=== PATIENT | female | born 1975 | race Caucasian/White ===

== ENCOUNTER 2018-03-12 07:08 | Emergency (ER) | payer OTHER ==
[~2018-03-12] VITALS: Ht 170.2 cm; Wt 99.8 kg
[~2018-03-12 07:08] MED LIST: CALCIUM500 MG PO; NEXIUM20 MG PO; ZOFRAN4 MG PO
[2018-03-12] MEDS ORDERED: ONDANSETRON ODT8 MG PO (08:30)
== END 2018-03-12 09:00 | disposition home or self-care (01) ==
LOC: ED 07:08
DX: K52.9 Noninfective gastroenteritis and colitis, unspecified (principal); Z79.899 Other long term (current) drug therapy
CPT/HCPCS: 80053; 85025; 87493; 96360; 99284; J7030

== ENCOUNTER 2020-06-15 23:56 | Emergency (ER) | payer OTHER ==
[~2020-06-15 23:56] MED LIST changes: +ONDANSETRON ODT8 MG PO
--- NOTE | 2020-06-18 13:29 | EKG ---
[facility] [address] [facility] [place], [place] [address] Signed Normal sinus rhythm Nonspecific ST and T wave abnormality Abnormal ECG No previous ECGs available Confirmed by VADIM AYOUB MD ([id number]) on 06/18/2020 1:29:23 PM Electronically Signed By: VADIM AYOUB MD 06/18/20 1329 PATIENT NAME: PHI IRWIN JO Electrocardiogram DATE OF : 71 PHYSICIAN: VADIM AYOUB MD REPORT #: [id number] REPORT IS CONFIDENTIAL AND NOT TO BE RELEASED WITHOUT AUTHORIZATION
[2020-11-13] MEDS ORDERED: NEXIUM20 MG PO (08:39)
[2020-11-13] MEDS ORDERED: CALCIUM-FOLIC1 EACH PO (08:39)
== END 2020-06-16 00:49 | disposition home or self-care (01) ==
LOC: ED 23:56
DX: R07.89 Other chest pain (principal)
CPT/HCPCS: 93005; 93010; 99284-25

== ENCOUNTER 2020-11-15 08:25 | Day surgery (SDC) | payer OTHER ==
[~2020-11-15] VITALS: Ht 170.2 cm; Wt 113.6 kg
[~2020-11-15 08:25] MED LIST changes: +CALCIUM-FOLIC1 EACH PO
[2020-11-15] MEDS ORDERED: IBUPROFEN800 MG PO (13:22)
[2020-11-15] MEDS ORDERED: PERCOCET 5-3251 EACH PO (13:23)
--- NOTE | 2020-11-16 11:51 | PATH ---
[facility] [address] [place], [place] [address] Signed SPECIMEN(S): A UTERUS, TUBES AND CERVIX SPECIMEN SOURCE: A. UTERUS, TUBES AND CERVIX CLINICAL HISTORY: AUB, dysmenorrhea, abnormal Pap. TLH, BS, cysto. FINAL PATHOLOGIC DIAGNOSIS: Uterus, cervix, and bilateral fallopian tubes, hysterectomy and bilateral salpingectomy: - Cervix: No histopathologic abnormality. - Endometrium: Secretory phase endometrium. - Myometrium: Leiomyomas (1.1 cm in greatest dimension). - Serosa: No histopathologic abnormality. - Fallopian tubes: Focal paratubal cyst. - No evidence of malignancy. NAL:cml:C2NR MICROSCOPIC EXAMINATION: Histologic sections of all submitted blocks are examined by light microscopy. These findings, together with the gross examination, support the pathologic diagnosis. GROSS DESCRIPTION: The specimen, labeled "BM," and designated on the requisition "bilateral fallopian tubes, uterus, cervix," is received in formalin and consists of a uterus (172 gram, 7.5 cm left to right, 6.6 cm superior to inferior, and 5.3 cm anterior to posterior), attached cervix (4.3 cm in length x 3.3 cm in diameter) with pink-zamudio to slightly hemorrhagic cervical mucosa and patent slit-shaped os (1.8 x 0.2 cm), and two detached and undesignated fimbriated fallopian tube segments (5.0 cm in length and ranging in diameter from 0.5-1.0 cm, and 5.0 cm in length and ranging in diameter from 0.7-0.9 cm). One fallopian tube segment is arbitrarily inked blue. Both fallopian tube segments are brown-zamudio and are sectioned reveal a grossly unremarkable cut surface. The blue inked fallopian tube has an attached paratubal cyst (0.5 cm in greatest dimension). The fimbriae are entirely submitted. The uterine serosa is pink-zamudio and smooth. The anterior aspects of the uterus PATIENT NAME: PHI IRWIN PATHOLOGY DATE OF : 71 REPORT #: [id number] PHYSICIAN: ITA PATHOLOGY PCP: NO PRIMARY CARE PHYSICIAN REPORT IS CONFIDENTIAL AND NOT TO BE RELEASED WITHOUT AUTHORIZATION [facility] [address] [place], [place] [address] Signed and cervix are inked blue. The specimen is opened to reveal a pink-zamudio to hemorrhagic endocervix (3.8 cm in length x 1.3 cm in diameter), and endometrial cavity (5.5 cm superior to inferior x 4.4 cm cornu to cornu) with hemorrhagic endometrial lining that measures up to 0.7 cm in thickness. The myometrium is pink-zamudio with two white-zamudio, well-circumscribed whorled nodules (0.3 and 1.1 cm in greatest dimension). Line Technician sections are submitted as follows: (A1-A2) Fallopian tubes (A3) Anterior and posterior cervix (A4) Anterior and posterior endomyometrium (A5) Nodules AC (under the direct supervision of a pathologist) The Gross Description was prepared using a voice recognition system. The report was reviewed for accuracy; however, sound-alike word errors, addition and/or deletions may occur. If there is any question about this report, please contact Client Services. PERFORMING LABORATORY: The technical component was performed by [facility], [address] [place] [address] (Bed And Breakfast Innkeeper: Ada Escalante MD; CLIA# [id number]). Professional interpretation was performed by [facility], [facility], [address] [address] (CLIA# [id number]). Diagnostician: Adelaida Beasley MD Pathologist Electronically Signed 11/16/2020 Copies: ~ PATIENT NAME: PHI IRWIN PATHOLOGY DATE OF : 71 REPORT #: [id number] PHYSICIAN: ITA PATHOLOGY PCP: NO PRIMARY CARE PHYSICIAN REPORT IS CONFIDENTIAL AND NOT TO BE RELEASED WITHOUT AUTHORIZATION
--- NOTE | 2020-12-03 18:14 | OR ---
[facility] [address] [place], [place] [address] Signed DATE OF OPERATION: 11/15/2020 SURGEON: Alvin England DO EVENT MARKETING REPRESENTATIVE: José Miguel Brower MD PROCEDURES: Total laparoscopic hysterectomy, bilateral salpingectomy, and cystoscopy. BLOOD LOSS: 100 mL. COMPLICATIONS: None. ANESTHESIA: General. LINES: None. DRAINS: Fitzgerald catheter. SPECIMEN: Uterus, cervix, bilateral tubes. FINDINGS: Enlarged uterus. Normal-appearing fallopian tubes status post tubal ligation with Filshie clips. One Filshie clip present in peritoneum overlying left broad ligament, one in peritoneum overlying the bladder, normal-appearing ovaries, each with a simple cyst present. Cysts appear to be physiologic. INDICATIONS: The patient is a 45-year-old female with history of abnormal uterine bleeding and dysmenorrhea. Ultrasound was performed, which revealed a nearly 10 cm uterus with findings concerning for adenomyosis. The patient declines medical management of AUB. Risks, benefits, and alternatives to total laparoscopic hysterectomy, bilateral salpingectomy were discussed and she elected to proceed. Electronically Signed By: ALVIN ENGLAND DO 12/03/20 1814 PATIENT NAME: PHI IRWIN OPERATIVE REPORT DATE OF : 71 REPORT #: [id number] PHYSICIAN: ALVIN ENGLAND DO PCP: NO PRIMARY CARE PHYSICIAN REPORT IS CONFIDENTIAL AND NOT TO BE RELEASED WITHOUT AUTHORIZATION [facility] [address] [place], [place] [address] Signed DESCRIPTION OF PROCEDURE: The patient was taken to the operating room where she was given heparin 5000 units subcutaneously and Ancef 2 g IV. She was prepped and draped in the normal sterile fashion in dorsal lithotomy position. The weighted speculum was placed in the vagina. Cervix was grasped with an Allis clamp on the anterior lip and sequentially dilated with Hegar dilators to accommodate VCare device. VCare was placed without difficulty. Surgeon's gloves were changed and attention was turned to the abdomen. Local anesthetic was injected in a vertical infraumbilical scar from tubal ligation. Incision was made through the scar with a scalpel and carried down to the subcutaneous layer. Subcutaneous layer was dissected with sharp and blunt dissection with Metzenbaum scissors and fascia was grasped and elevated with hemostats, incised with Metzenbaum scissors and superior and inferior margins were each tagged with 0 Vicryl. Peritoneum was entered bluntly. Kenneth trocar was placed without difficulty. Abdomen was insufflated with CO2 gas and pneumoperitoneum was achieved. Lateral trocars were placed under direct visualization, 5 mm trocar in the left lateral abdomen and 8 mm expanding trocar in the right lateral abdomen. Blunt grasper and Trendelenburg positioning were used to facilitate visualization of pelvic structures with findings as noted above. VCare uterine manipulator was noted to be in the lower uterine segment and was further advanced to the fundus under direct visualization with improved manipulation capabilities. Surgeon's gloves were again changed after repositioning the uterine manipulator and attention was once again returned to the abdomen. Left fallopian tube was grasped and elevated and LigaSure device was used to cauterize and cut along the tube from the fimbriated end to the corneal portion where Filshie clips had previously been placed. Tube was excised and removed from the abdomen under direct visualization. In the same manner, the right tube was grasped and elevated and LigaSure device was used to cauterize and cut along the fallopian tube and excised at the cornua and removed from the abdomen under direct visualization. Utero-ovarian ligaments were then sequentially cauterized and cut with LigaSure device. Round ligaments were noted to be poorly developed bilaterally. Left round ligament was cauterized and cut and broad ligament was opened allowing for dissection of the anterior leaf of the broad ligament down to the level of the bladder and posterior leaf down to the uterosacral ligaments, which were also noted to be poorly developed, and the level of the VCare cup. Vessels were cauterized and cut and attention was turned to the right side. Round ligament was cauterized and cut along for development of the broad ligament. Anterior leaf was dissected down to the level of the bladder and posterior leaf was cauterized and cut, dissected down to the level of the uterosacral ligaments and the VCare cup. Of note, the cup was difficult to palpate and Electronically Signed By: ALVIN ENGLAND DO 12/03/20 1814 PATIENT NAME: PHI IRWIN OPERATIVE REPORT DATE OF : 71 REPORT #: [id number] PHYSICIAN: ALVIN ENGLAND DO PCP: NO PRIMARY CARE PHYSICIAN REPORT IS CONFIDENTIAL AND NOT TO BE RELEASED WITHOUT AUTHORIZATION [facility] [address] [place], [place] [address] Signed planes were poorly delineated within the broad ligament bilaterally making these dissections challenging. Bladder flap was created with significant difficulty and uterine vessels were cauterized and cut bilaterally. LigaSure device was used to further take down the cervicovaginal peritoneum bilaterally and Sonicision Harmonic device was used to create the colpotomy staying within the groove of the VCare manipulator. Colpotomy was completed without complication. Excellent hemostasis was noted and the uterus and cervix were delivered as a single unit through the vagina. Pelvis was suction irrigated with small amount of oozing noted near the left apex, which was cauterized with LigaSure device. Sterile glove with lap sponge packing was placed in the vagina and vaginal cuff was closed with the Endo Stitch device in a running fashion. Pelvis was again suction irrigated. Excellent hemostasis was noted and Tisseel was applied to the operative site. Pneumoperitoneum was evacuated. Cystoscopy was performed with bladder dome noted to be intact. No evidence of injury or stitches present within the bladder and bilateral ureteral jets seen almost immediately upon start of cystoscopy. Bladder was drained and Fitzgerald catheter was replaced. Sterile packing was removed from the vagina. Excellent hemostasis was noted. Fascia was closed with 0 Vicryl in a running fashion. Infraumbilical fascial stay sutures were tied together over the top of the fascial closure and skin was closed with 4-0 Monocryl. Sponge and instrument counts were correct and the patient was taken to recovery in stable and satisfactory condition. Alvin England DO EMZ/MODL /[id number] Copies: ~ Electronically Signed By: ALVIN ENGLAND DO 12/03/20 1814 PATIENT NAME: PHI IRWIN JO OPERATIVE REPORT DATE OF : 71 REPORT #: [id number] PHYSICIAN: ALVIN ENGLAND DO PCP: NO PRIMARY CARE PHYSICIAN REPORT IS CONFIDENTIAL AND NOT TO BE RELEASED WITHOUT AUTHORIZATION
== END 2020-11-15 19:50 | disposition home or self-care (01) ==
LOC: DS 08:25 → OPS 08:25 → DS 10:15 → MS 17:45 → OPS 19:50
PROVIDERS: ATTEND Obstetrics & Gynecology
PROC: 0UT94ZZ Resection of Uterus, Percutaneous Endoscopic Approach (ICD-10-PCS; principal; 2020-11-15 10:15)
PROC: 0UT74ZZ Resection of Bilateral Fallopian Tubes, Percutaneous Endoscopic Approach (ICD-10-PCS; 2020-11-15 10:15)
DX: D25.9 Leiomyoma of uterus, unspecified (principal); N83.8 Other noninflammatory disorders of ovary, fallopian tube and broad ligament; N80.0 Endometriosis of uterus; R03.0 Elevated blood-pressure reading, without diagnosis of hypertension; Z80.49 Family history of malignant neoplasm of other genital organs
CPT/HCPCS: 00840; J0690; J1170; J1644; J1885; J2250; J2405; J3010; J7121

== ENCOUNTER 2022-01-04 06:15 | Emergency (ER) | payer OTHER ==
[~2022-01-04] VITALS: Ht 170.2 cm; Wt 113.4 kg
[~2022-01-04 06:15] MED LIST changes: +IBUPROFEN800 MG PO; +PERCOCET 5-3251 EACH PO
[2022-01-04] MEDS ORDERED: CYCLOBENZAPRINE10 MG PO (07:21)
[2022-01-04] MEDS ORDERED: PAXLOVID 300-11 EACH PO (07:21)
== END 2022-01-04 07:29 | disposition home or self-care (01) ==
LOC: ED 06:15
DX: U07.1 COVID-19 (principal); Z91.018 Allergy to other foods
CPT/HCPCS: 72040; 87502; 96372; 99283-25; J1885; J3360; U0003

== ENCOUNTER 2023-01-16 05:03 | Emergency (ER) | payer OTHER ==
[~2023-01-16] VITALS: Ht 170.2 cm; Wt 113.4 kg
--- OUTSIDE RECORDS SUMMARY | ~2023-01-16 | XMS | Continuity of Care Document ---
Demographics + + + | Address | [address] | | | [place] [address] | + + + | Preferred Language | Unknown | + + + | Marital Status | | + + + | Orthodox Affiliation | Unknown | + + + | Race | White | + + + | Ethnic Group | Not or | + + + Author + + + | Author | [facility] | + + + | Organization | [facility] | + + + | Address | [address] | | | [place] [address] | + + + | Phone | | + + + Care Team Providers + + + + | Care Bottom Crane Operator Name | Role | Phone | + + + + Unavailable | Unavailable | + + + + Unavailable | Unavailable | + + + + Allergies and Intolerances + + + + + + | date | description | facility | reaction | severity | + + + + + + | (no date) | Pineapple | [facility] | (no reaction) | (no severity) | | | [facility] | | | + + + + + + Encounters No information. Functional Status No information. Immunizations No information. Medications + + + + | date | description | facility | + + + + | 2015-07-07 00:00 | [facility]RON HCL | [facility] | + + + + | 2022-01-04 00:00 | OXYCODONE | [facility] | | | HCL/ACETAMINOPHEN | | + + + + | 2022-01-04 00:00 | IBUPROFEN | [facility] | + + + + | 2022-01-04 00:00 | Nirmatrelvir/Ritonavir | [facility] | + + + + | 2022-01-04 00:00 | CALCIUM CARBONATE | [facility] | + + + + | 2018-03-12 00:00 | ONDANSETRON | [facility] | + + + + | 2022-01-04 00:00 | ESOMEPRAZOLE MAG | [facility] | | | TRIHYDRATE | | + + + + | 2022-01-04 00:00 | CYCLOBENZAPRINE HCL | [facility] | + + + + Problems + + + + | date | description | facility | + + + + | 2015-07-07 00:00 | Diarrhea | [facility] | + + + + | 2015-07-07 00:00 | Dizziness | [facility] | + + + + | 2020-06-16 00:00 | Nonspecific chest pain | [facility] | + + + + | 2022-01-04 00:00 | Infection due to severe | [facility] | | | acute respiratory syndrome | | | | coronavirus 2 (SARS-CoV-2) | | + + + + Procedures No information. Results/Labs +--------+--------+ +---------+--------+---------+ | test | date | facility | value | unit | notes | +--------+--------+ +---------+--------+---------+ + + | Result panel 1 | + + + + + + + + + | | 2022-01-04 | [facility] | POSITIVE | (missing) | (missing) | | (unavailable | 06:30 [facility] | | | | + + + + + + + + + | Result panel 2 | + + + + + + + + + | | 2022-01-04 | [facility] | NEGATIVE | (missing) | (missing) | | (unavailable | 06:30 [facility] | | | | + + + + + + + + + | Result panel 3 | + + + + + + + + + | | 2022-01-04 | [facility] | NEGATIVE | (missing) | (missing) | | (unavailable | 06:30 [facility] | | | | + + + + + + + + + | Result panel 4 | + + + + + + + + + | | 2022-01-04 | [facility] | NEGATIVE | (missing) | (missing) | | (unavailable | 06:30 [facility] | | | | + + + + + + + Social History No information. Vital Signs + + + +---------+ | date | measurement | value | units | + + + +---------+ | 2022-01-04 00:00 | BMI | 39.2 | kg/m2 | + + + +---------+ | 2022-01-04 00:00 | BP_diastolic | 96 | mmHg | + + + +---------+ | 2022-01-04 00:00 | BP_systolic | 171 | mmHg | + + + +---------+ | 2022-01-04 00:00 | heart_rate | 105 | /min | + + + +---------+ | 2022-01-04 00:00 | height_metric | 170.18 | cm | + + + +---------+ | 2022-01-04 00:00 | height_standard | 67 | in | + + + +---------+ | 2022-01-04 00:00 | o2_saturation | 95 | % | + + + +---------+ | 2022-01-04 00:00 | respiration_rate | 18 | /min | + + + +---------+ | 2022-01-04 00:00 | temperature_metric | 37.61 | C | | | | | | + + + +---------+ | 2022-01-04 00:00 | | 99.7 | F | | | temperature_standar | | | | | d | | | + + + +---------+ | 2022-01-04 00:00 | weight_metric | 113.4 | kg | + + + +---------+ | 2022-01-04 00:00 | weight_standard | 250 | lb | + + + +---------+"
--- OUTSIDE RECORDS SUMMARY | ~2023-01-16 | XMS | Continuity of Care Document ---
Demographics + + + | Address | [address] | | | [place] [address] | + + + | Preferred Language | Unknown | + + + | Marital Status | | + + + | Sabianist Affiliation | Unknown | + + + | Race | White | + + + | Ethnic Group | Not or | + + + Author + + + | Author | [facility] | + + + | Organization | [facility] | + + + | Address | [address] | | | [place] [address] | + + + | Phone | | + + + Care Team Providers + + + + | Care Housekeeping Attendant Name | Role | Phone | + [...] | 2015-07-07 00:00 | [facility]CL | [facility] | + + + + | 2022-01-04 00:00 | OXYCODONE | [facility] | | | HCL/ACETAMINOPHEN | | + + + + | 2022-01-04 00:00 | IBUPROFEN | [facility] | + + + + | 2022-01-04 00:00 | Nirmatrelvir/Ritonavir | [facility] | + + + + | 2022-01-04 00:00 | CALCIUM CARBONATE | [facility] | + + + + | 2018-03-12 00:00 | ONDANSETRON | [facility] | + + + + | 2022-01-04 00:00 | ESOMEPRAZOLE MAG | [facility] | | | TRIHYDRATE | | + + + + | 2022-01-04 00:00 | CYCLOBENZAPRINE HCL | [facility] | + + + + Problems + + + + | date | description | facility | + + + + | 2015-07-07 00:00 | Diarrhea | [facility] | + + + + | 2015-07-07 00:00 | Dizziness | [facility] | + + + + | 2020-06-16 00:00 | Nonspecific chest pain | [facility] | + + + + | 2022-01-04 00:00 | Infection due to severe | [facility] | | | acute respiratory syndrome | [...]
[~2023-01-16 05:03] MED LIST changes: +CYCLOBENZAPRINE10 MG PO; +PAXLOVID 300-11 EACH PO
[2023-01-16 05:52] LABS: BASOPHILS 0.2 % (0-2); HEMATOCRIT 40.8 % (35.0-50.0); HEMOGLOBIN 13.4 g/dL (12.0-18.0); LYMPHOCYTES 25.4 % (24-44); MCH 31.7 (27-36); MCV 96.2 fl (81-99); MONOCYTES 5.9 % (0-12); NEUTROPHILS 67.5 % (39-80); PLATELET COUNT 253 K/uL (140-440); RBC 4.24 M/ul (4.3-5.7)
[2023-01-16 05:56] LABS: INFLUENZA B NAA NEGATIVE (NEGATIVE); RESPIRATORY SYNCYTIAL VIR NAA NEGATIVE (NEGATIVE)
[2023-01-16 06:10] LABS: ALBUMIN 3.7 g/dL (3.4-5.0); ALBUMIN/GLOBULIN RATIO 0.95 (1.1-2.4); ANION GAP 10.7 (7-21); BILIRUBIN, TOTAL 0.8 ng/dL (0.2-1.0); BUN/CREATININE RATIO 18.75 (6.0-28.6); CALCIUM 8.9 mg/dL (8.5-10.1); CREATININE, SERUM 1.12 mg/dL (0.55-1.02); POTASSIUM 3.7 mmol/L (3.5-5.1); PROTEIN, TOTAL 7.6 g/dL (6.4-8.2)
[2023-01-16] MEDS ORDERED: PAXLOVID 300-11 EACH PO (06:24)
[2023-01-16] MEDS ORDERED: CYCLOBENZAPRINE10 MG PO (06:24)
[2023-01-16] MEDS ORDERED: VENTOLIN HFA18 GM INH (06:24)
[2023-01-16] MEDS ORDERED: ONDANSETRON ODT8 MG PO (06:26)
[2023-01-16] MEDS ORDERED: MECLIZINE HCL25 MG PO (06:26)
[2023-01-16 06:37] LABS: BILIRUBIN, URINE NEGATIVE (negative); BLOOD/HGB, URINE NEGATIVE (Negative); KETONE, URINE NEGATIVE (Negative); LEUK ESTERASE, URINE SMALL (negative); NITRITE, URINE NEGATIVE (negative)
[2023-01-16 06:59] VITALS: BP 134/72
[2023-01-16 07:13] LABS: BACTERIA, URINE 1+ /hpf (negative); CASTS, URINE NONE SEEN \\lpf; COLLECTION TYPE, URINE CLEAN CATCH; CRYSTALS, URINE NONE SEEN (0-1+); EPITHELIAL CELLS, URINE SQUAMOUS 1+ /lpf (0-1+); RED BLOOD CELLS, URINE 0-1 /hpf (0-5); REFLEX CULTURE, URINE Yes (No)
--- NOTE | 2023-01-17 17:08 | EKG ---
[facility] [address] [place], [place] [address] Signed Normal sinus rhythm Normal ECG When compared with ECG of 15-JUN-2020 23:58, No significant change was found Confirmed by ELLIOTT DELGADO MD ([id number]) on 01/17/2023 5:08:35 PM Electronically Signed By: ELLIOTT DELGADO 01/17/23 1708 PATIENT NAME: DCMICHAEL Electrocardiogram DATE OF : 71 PHYSICIAN: ELLIOTT DELGADO REPORT #: [id number] REPORT IS CONFIDENTIAL AND NOT TO BE RELEASED WITHOUT AUTHORIZATION
== END 2023-01-16 06:59 | disposition home or self-care (01) ==
LOC: ED 05:03
PROVIDERS: Family Medicine
DX: U07.1 COVID-19 (principal); Z91.018 Allergy to other foods
CPT/HCPCS: 36415; 71045; 80053; 81001; 83735; 84484; 85025; 85379; 87088; 87502; 93005; 93010; 96374; 99284-25; A9270; J2405; J7121; U0002

== ENCOUNTER 2025-04-21 07:37 | Emergency (ER) | payer OTHER ==
[~2025-04-21] VITALS: Ht 170.2 cm; Wt 120.8 kg
[~2025-04-21 07:37] MED LIST changes: +MECLIZINE HCL25 MG PO; +VENTOLIN HFA18 GM INH
--- OUTSIDE RECORDS SUMMARY | 2025-04-21 07:44 | XMS ---
PreManage Notification: PHI IRWIN Security Medication Aid Events No recent Security Events currently on file CRITERIA MET - Group Notification CARE PROVIDERS There are no care providers on record at this time. Keila has no Care Guidelines for this patient. [facility] VISIT COUNT (12 MO.) 2 [facility] TOTAL 2 NOTE: Visits indicate total known visits. ED/C VISIT TRACKING (12 MO.) 04/21/2025 07:37 [facility] [place] TYPE: Emergency COMPLAINT: - LT FINGER LACERATION 07/18/2024 16:58 [facility] [place] TYPE: Emergency COMPLAINT: - ABDOMINAL PAIN INPATIENT VISIT TRACKING (12 MO.) No inpatient visits to display in this time frame [email or web address]
[2025-04-21 08:51] VITALS: BP 160/98
== END 2025-04-21 08:51 | disposition home or self-care (01) ==
LOC: ED 07:37
DX: S61.305A Unspecified open wound of left ring finger with damage to nail, initial encounter (principal); W22.8XXA Striking against or struck by other objects, initial encounter; Z79.899 Other long term (current) drug therapy; Z91.018 Allergy to other foods
CPT/HCPCS: 99282